=== PATIENT | female | born 1970 | race Caucasian/White ===

== ENCOUNTER 2016-11-17 10:59 | Observation (INO) | payer OTHER ==
[~2016-11-17] VITALS: Ht 177.8 cm; Wt 75.0 kg
[2016-11-17] VITALS (11 sets, daily range): BP systolic 112–145; BP diastolic 58–74; PULSE 72–92; RESP 16–20; TEMP 97.3–100; O2SAT 97–100
[~2016-11-17 10:59] MED LIST: MECL25CH PO; ZOFR4TAB3 PO
--- NOTE | 2016-11-17 11:07 | PD ---
HPI . low HGB Chief Complaint: Abnormal Results Time Seen by Provider: 11:07 Travel History International Travel<30 days: No Contact w/Intl Traveler<30days: No Traveled to known affect area: No History of Present Illness HPI 46 yr old female here with c/o low H/H. Patient has a history of iron deficiency anemia and tells me that she has not been taking iron for quite some time. She says that she is somewhat neglected her health and recently went to see her primary care provider. She received a phone call on Sunday telling her that she had a critically low hemoglobin of 5.7 and that she needed to go to the emergency department for iron transfusion. Patient also reports that she 's had 3 months worth of dysphasia is being followed by her primary care provider. She denies any chest pain, nausea, vomiting, shortness of breath, fatigue or weakness. In regards to her dysphagia, she is able to eat and drink without any major problems. She has no airway difficulties. She denies any melena or hematochezia. Her pcp is Dr. Kellogg [facility] Past Medical History Anemia: Yes (CHRONIC) Asthma: Yes Anxiety: Yes Depression: Yes Diabetes: Yes (PRIOR TO GASTRIC BYPASS) Diminished Hearing: No Headaches: Yes Hypertension: Yes (PRIOR TO GASTRIC BYPASS) Migraines: Yes Pneumonia: Yes ?: Not LMP: 09/2016 : 1 Para: 0 Miscarriage: 1 Past Surgical History Abdominal Surgery: Yes (GASTRIC BYPASS 2000) Appendectomy: Yes Cholecystectomy: Yes Tonsillectomy: Yes Other Surgery: Yes (GASTRIC BYPASS 2000- [facility]) Social History Alcohol Use: No Tobacco Use: Yes (E-CIGARETTE) Substance Use: No Allergies-Medications (Allergen,Severity, Reaction): Coded Allergies: Codeine (Verified Adverse Reaction, Mild, GI UPSET, 11/17/16) Reported Meds & Prescriptions Reported Meds & Active Scripts Active Zofran ODT (Ondansetron HCl) 4 Mg Tab 4 Mg PO Q6HR Meclizine Hcl (Meclizine HCl) 25 Mg Chw 25 Mg PO Q6H PRN Review of Systems General / Constitutional: No: Fever Eyes: No: Visual changes HENT: No: Headaches Cardiovascular: No: Chest Pain or Discomfort Respiratory: No: Shortness of Breath Gastrointestinal: Positive: Constipation, Dysphagia (being followed by PCP ), No: Nausea, Vomiting, Diarrhea, Abdominal Pain, Hematemesis, Hematochezia Genitourinary: No: Dysuria Musculoskeletal: No: Pain Skin: No Rash Neurologic: No: Weakness Psychiatric: No: Depression Endocrine: No: Polydipsia Hematologic/Lymphatic: No: Easy Bruising Physical Exam Narrative GENERAL: AAO x 3, no acute distress, Well-nourished, well-developed patient. SKIN: Warm and dry. No visible rashes or bruising. ++ pallor HEAD: Normocephalic and atraumatic. EYES: No scleral icterus. No injection or drainage. EOM intact, pale conjunctiva ENT: No nasal drainage noted. Mucous membranes pink. Airway patent. pale buccal mucosa NECK: Supple, trachea midline. No JVD. Palpable thyroid gland, slightly enlarged CARDIOVASCULAR: Regular rate and rhythm without murmurs, gallops, or rubs. RESPIRATORY: Breath sounds equal bilaterally. No accessory muscle use. No rhonchi or rales. GASTROINTESTINAL: Abdomen soft, non-tender, nondistended. EXTREMITIES: No cyanosis or edema. BACK: No obvious deformity. . NEURO: CN II-12 intact, grocery store associate strength normal b/l, UE and LE 5/5, no focal deficits PSYCH: AAO x 3, normal affect. Data Data Last Documented VS Vital Signs Date Time Temp Pulse Resp B/P Pulse Ox O2 Delivery O2 Flow Rate FiO2 11/17/16 13:01 75 16 114/58 98 Room Air 11/17/16 11:02 100.0 Orders Complete Blood Count With Diff (11/17/16 11:12) Basic Metabolic Panel (Bmp) (11/17/16 11:12) Serum Total Iron (Fe) (11/17/16 11:12) Type And Screen (11/17/16 11:13) Red Blood Cells (Rbc) (11/17/16 11:13) Blood Product Administration .UPON TRANSFUSION (11/17/16 11:13) Sodium Chlor 0.9% 250 Ml Inj (Ns 250 Ml (11/17/16 11:15) Admit Order (Ed Use Only) (11/17/16 13:28) Labs Laboratory Tests Test 11/17/16 11/17/16 11:30 12:35 White Blood Count 4.3 TH/MM3 Red Blood Count 3.63 MIL/MM3 Hemoglobin 5.7 GM/DL Hematocrit 19.6 % Mean Corpuscular Volume 54.0 FL Mean Corpuscular Hemoglobin 15.6 PG Mean Corpuscular Hemoglobin 28.9 % Concent Red Cell Distribution Width 19.1 % Platelet Count 234 TH/MM3 Mean Platelet Volume 8.3 FL Neutrophils (%) (Auto) 58.1 % Lymphocytes (%) (Auto) 30.4 % Monocytes (%) (Auto) 9.7 % Eosinophils (%) (Auto) 0.4 % Basophils (%) (Auto) 1.4 % Neutrophils # (Auto) 2.5 TH/MM3 Lymphocytes # (Auto) 1.3 TH/MM3 Monocytes # (Auto) 0.4 TH/MM3 Eosinophils # (Auto) 0.0 TH/MM3 Basophils # (Auto) 0.1 TH/MM3 CBC Comment DIFF FINAL Differential Comment Sodium Level 139 MEQ/L Potassium Level 3.7 MEQ/L Chloride Level 106 MEQ/L Carbon Dioxide Level 24.6 MEQ/L Anion Gap 8 MEQ/L Blood Urea Nitrogen 9 MG/DL Creatinine 0.57 MG/DL Estimat Glomerular Filtration 115 ML/MIN Rate Random Glucose 85 MG/DL Calcium Level 8.1 MG/DL Iron Level 7 MCG/DL Blood Type O POSITIVE O POSITIVE Antibody Screen NEGATIVE Crossmatch Leukocyte-Reduced Red Blood Cells Blood Bank Comment MDM Medical Decision Making Medical Screen Exam Complete: Yes Emergency Medical Condition: Yes Medical Record Reviewed: Yes Differential Diagnosis Iron deficiency anemia, less likely GI bleed, pernicious anemia Narrative Course 46-year-old female here with low hemoglobin. She does have history of iron deficiency anemia. IV access was obtained, labs have been ordered. Patient is asymptomatic, but will require a blood transfusion. Case was discussed with my supervising physician Dr. Cali Adam. We will go ahead and transfuse this patient and admit her as she will likely require an iron infusion as well. In regards to her dysphagia, she is currently having this followed by her primary care provider. She does not have any airway compromise. I reiterated to her that she should have a thyroid ultrasound as an outpatient. Laboratory Tests Test 11/17/16 11/17/16 11:30 12:35 White Blood Count 4.3 TH/MM3 Red Blood Count 3.63 MIL/MM3 Hemoglobin 5.7 GM/DL Hematocrit 19.6 % Mean Corpuscular Volume 54.0 FL Mean Corpuscular Hemoglobin 15.6 PG Mean Corpuscular Hemoglobin 28.9 % Concent Red Cell Distribution Width 19.1 % Platelet Count 234 TH/MM3 Mean Platelet Volume 8.3 FL Neutrophils (%) (Auto) 58.1 % Lymphocytes (%) (Auto) 30.4 % Monocytes (%) (Auto) 9.7 % Eosinophils (%) (Auto) 0.4 % Basophils (%) (Auto) 1.4 % Neutrophils # (Auto) 2.5 TH/MM3 Lymphocytes # (Auto) 1.3 TH/MM3 Monocytes # (Auto) 0.4 TH/MM3 Eosinophils # (Auto) 0.0 TH/MM3 Basophils # (Auto) 0.1 TH/MM3 CBC Comment DIFF FINAL Differential Comment Sodium Level 139 MEQ/L Potassium Level 3.7 MEQ/L Chloride Level 106 MEQ/L Carbon Dioxide Level 24.6 MEQ/L Anion Gap 8 MEQ/L Blood Urea Nitrogen 9 MG/DL Creatinine 0.57 MG/DL Estimat Glomerular Filtration 115 ML/MIN Rate Random Glucose 85 MG/DL Calcium Level 8.1 MG/DL Iron Level 7 MCG/DL Blood Type O POSITIVE O POSITIVE Antibody Screen NEGATIVE Crossmatch Leukocyte-Reduced Red Blood Cells Blood Bank Comment We ordered 2 units PRBC. Discussed admission with Dr. Mortensen, who has accepted patient for admission. He will resume care of this patient and determine her disposition. All results have been discussed with the patient. She has agreed to admission and with our recommendations. Patient thanked me for her care. Diagnosis Primary Impression: Iron deficiency anemia Qualified Code: D50.9 - Iron deficiency anemia, unspecified iron deficiency anemia type Admitting Information Admitting Physician Requests: Admit Condition: Stable Bianca Evans Nov 17, 2016 11:07
[2016-11-17 11:13] LABS: MEAN CORPUSCULAR HGB CONC 28.9 % (32.0-36.0)
[2016-11-17] MEDS ORDERED: SODIUM CHLOR 0.9% 250 ML INJ 250 ML IV ONE (11:15)
[2016-11-17 11:57] LABS: AUTOMATED NEUTROPHIL # 2.5 TH/MM3 (1.8-7.7); BASOPHIL # 0.1 TH/MM3 (0-0.2); BASOPHIL % 1.4 % (0.0-2.0); EOSINOPHIL % 0.4 % (0.0-4.0); LYMPH % 30.4 % (9.0-44.0); LYMPHOCYTE # 1.3 TH/MM3 (1.0-4.8); MEAN CORPUSCULAR HEMOGLOBIN 15.6 PG (27.0-34.0); MONO % 9.7 % (0.0-8.0); NEUT % 58.1 % (16.0-70.0); PLATELET COUNT 234 TH/MM3 (150-450); RED BLOOD COUNT 3.63 MIL/MM3 (4.00-5.30); RED CELL DISTRIBUTION WIDTH 19.1 % (11.6-17.2); WHITE BLOOD COUNT 4.3 TH/MM3 (4.0-11.0)
[2016-11-17 12:08] LABS: HEMATOCRIT 19.6 % (35.0-46.0); HEMO FLAGS DIFF FINAL
[2016-11-17 12:13] LABS: BICARBONATE 24.6 MEQ/L (21.0-32.0); POTASSIUM 3.7 MEQ/L (3.5-5.1)
[2016-11-17] MEDS ORDERED: ASPI1POW9 PO (14:36)
--- NOTE | 2016-11-17 16:42 | HHI.HP ---
HPI Service [facility] Primary Care Physician Jan Kellogg, DO Admission Diagnosis iron def anemia Chief Complaint: Anemia Travel History International Travel<30 Days: No Contact w/Intl Traveler <30 Da: No Traveled to Known Affected Are: No History of Present Illness Ms Elizondo is a 46 y/o female with hx of iron deficiency anemia, anxiety and depression with hx of gastric bypass surgery. She tells me that she has not been taking iron supplements for quite some time and has been seen by her PCP for a few years. She reports that for the last few weeks she has had increased fatigue, generalized weakness, headaches and some SOB with exertion. She also noted that she has been taking Goody Powders 2-3 times per day for the last year for chronic headaches. Pt also reports that she has had some swallowing issues with a globus sensation in her throat to all consistencies. She has also been having some odynophagia when eating food. She says that she is somewhat neglected her health had been seen previously by Dr. Khan for iron infusions regularly but she had not gotten any iron infusions in the last two years. She resumed her health insurance in September and went to see her PCP, Dr. Kellogg this week and then went for blood work and was called for a critically low hemoglobin of 5.7 and that she needed to go to the emergency department for blood transfusion. She denies any chest pain, nausea, vomiting, shortness of breath, fatigue or weakness. She denies any melena or hematochezia. Review of Systems Constitutional: DENIES: Fever, Chills Respiratory: DENIES: Cough Cardiovascular: COMPLAINS OF: Dyspnea on Exertion, DENIES: Chest pain Gastrointestinal: COMPLAINS OF: GERD, Difficulty Swallowing, DENIES: Abdominal pain, Black stools, Bloody stools, Constipation, Diarrhea, Nausea, Vomiting Integumentary: DENIES: Rash Neurologic: DENIES: Headache Psychiatric: DENIES: Confusion Past Family Social History Past Medical History Iron deficiency anemia Asthma Anxiety/Depression Hx of vertigo Past Surgical History Gastric bypass in 2000 Appendectomy Cholecystectomy Tonsillectomy Reported Medications Goodys Extra Strength Powder (Zgbuqtr-Anbpuqscemmid-Okectcwg Powder) 500-325-65 Mg Powderpack 1 Pkt PO TID PRN Allergies: Coded Allergies: Codeine (Verified Adverse Reaction, Mild, GI UPSET, 11/17/16) Family History Noncontributory Social History Hx of tobacco use, smoked 1ppd x 15 years, quit 2 years ago. Smokes electronic cigarettes Denies any alcohol or illicit drug use Physical Exam Vital Signs Vital Signs Date Time Temp Pulse Resp B/P Pulse Ox O2 Delivery O2 Flow Rate FiO2 11/17/16 16:19 74 16 113/74 99 11/17/16 15:03 98.6 75 16 112/60 100 Room Air 11/17/16 14:48 98.5 72 16 114/63 99 Room Air 11/17/16 14:45 98.5 72 16 114/63 99 Room Air 11/17/16 14:09 79 20 125/63 99 Room Air 11/17/16 13:01 75 16 114/58 98 Room Air 11/17/16 11:26 92 16 122/61 Room Air 11/17/16 11:02 100.0 92 20 145/67 97 Room Air Physical Exam GENERAL: This is a well-nourished, well-developed patient, in no apparent distress. SKIN: No rashes, ecchymoses or lesions. Cool and dry. HEAD: Atraumatic. Normocephalic. No temporal or scalp tenderness. EYES: Pupils equal round and reactive. Extraocular motions intact. No scleral icterus. No injection or drainage. ENT: Nose without bleeding, purulent drainage or septal hematoma. Throat without erythema, tonsillar hypertrophy or exudate. Uvula midline. Airway patent. NECK: Trachea midline. No JVD or lymphadenopathy. Supple, nontender, no meningeal signs. CARDIOVASCULAR: Regular rate and rhythm without murmurs, gallops, or rubs. RESPIRATORY: Clear to auscultation. Breath sounds equal bilaterally. No wheezes , rales, or rhonchi. GASTROINTESTINAL: Abdomen soft, non-tender, nondistended. No hepato-splenomegaly , or palpable masses. No guarding. MUSCULOSKELETAL: Extremities without clubbing, cyanosis, or edema. No joint tenderness, effusion, or edema noted. No calf tenderness. Negative Homans sign bilaterally. NEUROLOGICAL: Awake and alert. Cranial nerves II through XII intact. Motor and sensory grossly within normal limits. Five out of 5 muscle strength in all muscle groups. Normal speech. Laboratory Laboratory Tests Test 11/17/16 11/17/16 11:30 12:35 White Blood Count 4.3 Red Blood Count 3.63 Hemoglobin 5.7 Hematocrit 19.6 Mean Corpuscular Volume 54.0 Mean Corpuscular Hemoglobin 15.6 Mean Corpuscular Hemoglobin 28.9 Concent Red Cell Distribution Width 19.1 Platelet Count 234 Mean Platelet Volume 8.3 Neutrophils (%) (Auto) 58.1 Lymphocytes (%) (Auto) 30.4 Monocytes (%) (Auto) 9.7 Eosinophils (%) (Auto) 0.4 Basophils (%) (Auto) 1.4 Neutrophils # (Auto) 2.5 Lymphocytes # (Auto) 1.3 Monocytes # (Auto) 0.4 Eosinophils # (Auto) 0.0 Basophils # (Auto) 0.1 CBC Comment DIFF FINAL Differential Comment Sodium Level 139 Potassium Level 3.7 Chloride Level 106 Carbon Dioxide Level 24.6 Anion Gap 8 Blood Urea Nitrogen 9 Creatinine 0.57 Estimat Glomerular Filtration 115 Rate Random Glucose 85 Calcium Level 8.1 Iron Level 7 Blood Type O POSITIVE O POSITIVE Antibody Screen NEGATIVE Crossmatch Leukocyte-Reduced Red Blood Cells Blood Bank Comment Result Diagram: 11/17/16 1130 11/17/16 1130 Assessment and Plan Problem List: (1) Symptomatic anemia Status: Acute Plan: - Pt with symptomatic anemia and has been had dyspnea on exertion, increased fatigue and hx of gastric bypass surgery with previous hx of iron deficiency anemia - She has been having issues with dysphagia over the last few months and has been using Goody powder consistently for at least the last year. - She hasn't received iron infusions for the last 2 years and has not been on any supplements - Pt is being transfused with 2 units of PRBCs currently - Start Protonix 40mg IV BID - Iron infusion with IV Venofer iron sucrose - Consult GI for the dysphagia and iron deficiency anemia - Supportive care - Repeat labs in AM (2) Dysphagia Status: Chronic (3) NSAID long-term use Status: Chronic (4) H/O gastric bypass Status: Chronic Assessment and Plan Patient examined. Assessment and plan formulated with Susie Dumont PA-C. I agree with the above. symptomatic blood loss anemia. dysphagia/odynophagia. takes alot of bc powder for h/a craves alot of ice iron def anemia related to gi losses hx gastric surgery and poor iron absorption. blood transfusion given by ED> iv iron ordered d/c in AM. PPI. I spoke to Dr Echeverria who will have pt called [facility] for appt this coming week. She will likely need EGD to eval the UGI tract. She could potentially have a dragan ketty syndrome Susie Dumont Nov 17, 2016 16:41 Jovanny Mortensen MD Nov 17, 2016 21:16
[2016-11-17] MEDS ORDERED: IRON SUCROSE INJ 200 MG in SODIUM CHLORIDE 0.9% INJ 100 ML IV SCH (17:00)
[2016-11-17] MEDS: PANTOPRAZOLE SODIUM 40 MG VIAL IV PUSH SCH (19:16)
[2016-11-18] VITALS (9 sets, daily range): BP systolic 99–116; BP diastolic 53–69; PULSE 68–78; RESP 16–20; TEMP 97.2–99.2; O2SAT 97–99
[2016-11-18 04:13] LABS: REVIEW FLAG FINAL
[2016-11-18 04:18] LABS: HEMATOCRIT 22.7 % (35.0-46.0)
[2016-11-18] MEDS: PANTOPRAZOLE SODIUM 40 MG VIAL IV PUSH SCH ×2 (05:50→18:23)
[2016-11-18] MEDS ORDERED: IRON SUCROSE 100 MG/5 ML VIAL IV PUSH ONE (09:00)
[2016-11-18] MEDS ORDERED: PNEUMOCOCCAL POLYVALENT INJ 25 MCG/0.5 ML SYR IM ONE (10:00)
[2016-11-18] MEDS ORDERED: INFLUENZA VIRUS VACCINE (QUADRIVALENT) 0.5 ML SYR IM ONE (10:00)
[2016-11-18 11:29] LABS: REVIEW FLAG FINAL
[2016-11-18] MEDS ORDERED: PROT40TA PO (11:50)
[2016-11-18] MEDS ORDERED: ACETAMINOPHEN 500 MG CPLT PO ONE (12:00)
--- NOTE | 2016-11-18 13:56 | HHI.PR ---
Subjective Remarks says she stilll feels very weak and lightheaded just walking to bathroom. She feels like falling asleep and would not be able to drive no bleeding noted. no abdomen pain. able to swallow and hold down foods/liquids. Objective Vitals nad heart reg lung cta abd s/nt ext no edema Vital Signs Date Time Temp Pulse Resp B/P Pulse Ox O2 Delivery O2 Flow Rate FiO2 11/18/16 12:43 98.6 74 16 111/69 97 11/18/16 08:25 98.7 72 16 111/64 97 11/18/16 03:55 99.2 77 20 103/54 97 11/18/16 00:09 98.9 75 19 114/55 98 11/17/16 20:22 97.3 74 19 119/68 98 11/17/16 17:20 98.9 76 17 121/66 100 11/17/16 16:58 99.1 77 20 122/67 100 11/17/16 16:19 74 16 113/74 99 11/17/16 15:03 98.6 75 16 112/60 100 Room Air 11/17/16 14:48 98.5 72 16 114/63 99 Room Air 11/17/16 14:45 98.5 72 16 114/63 99 Room Air 11/17/16 14:09 79 20 125/63 99 Room Air Result Diagram: 11/18/16 1045 11/17/16 1130 A/P Problem List: (1) Symptomatic anemia Status: Acute Plan: - Pt with symptomatic anemia and has had dyspnea on exertion, increased fatigue and hx of gastric bypass surgery with previous hx of iron deficiency anemia - She has been having issues with dysphagia over the last few months and has been using Goody powder consistently for at least the last year. - She hasn't received iron infusions for the last 2 years and has not been on any supplements -The patient has symptomatic iron deficiency anemia. with her dysphagia she may have a dragan ketty syndrome with esophageal ring or webbing.....versus esophagitis/ulceration from taking 3x daily BC powders for over a year. Today after 2 units blood and 2 of venofer iron she still feels fatigue and lightheaded. She will need an EGD to evaluate for the above diagnosis and less likely but to exclude malignancy. She will get another unit of blood prior to her dc later today. she will stop using BC powder and use bid protonix. she will modify her diet for now I spoke with GI Dr Echeverria who would like to see her in the office instead of the hospital. She would have to wait several days here before endoscopy could be performed. He will have his office call her on Sunday for an appt. The pt is instructed to contact her pcp office on Sunday as I would recommend she get more iron infusions..[facility]. we will try to call pcp office also on Sunday. (2) Dysphagia Status: Chronic (3) NSAID long-term use Status: Chronic (4) H/O gastric bypass Status: Chronic Jovanny Mortensen MD Nov 18, 2016 13:56
--- NOTE | 2016-11-18 18:10 | HHI.DCPOC ---
Discharge Care Plan Diagnosis: (1) Symptomatic anemia (2) Iron deficiency anemia (3) Dysphagia (4) NSAID long-term use Goals to Promote Your Health * To prevent worsening of your condition and complications * To maintain your health at the optimal level Directions to Meet Your Goals Take your medications as prescribed Follow your dietary instruction Follow activity as directed Keep your appointments as scheduled Take your immunizations and boosters as scheduled If your symptoms worsen call your PCP, if no PCP go to Urgent Care Center or Emergency Room Smoking is Dangerous to Your Health. Avoid second hand smoke Call the 24-hour hour crisis hotline for domestic abuse at Jovanny Mortensen MD Nov 18, 2016 18:10
== END 2016-11-18 19:56 | disposition home or self-care (01) ==
LOC: NEPC 10:59 → NEDA 13:29 → NEPGCP 16:24
PROVIDERS: ADMIT Hospitalist; ATTEND Hospitalist
DX: D50.9 Iron deficiency anemia, unspecified (principal); Z98.84 Bariatric surgery status; R13.10 Dysphagia, unspecified; Z23 Encounter for immunization; F41.9 Anxiety disorder, unspecified; F32.9 Major depressive disorder, single episode, unspecified; F17.210 Nicotine dependence, cigarettes, uncomplicated
CPT/HCPCS: 36430; 80048; 83540; 85014; 85018; 85025; 86850; 86900; 86901; 86920; 90471; 90732; 99285; C9113; G0378; J1756; J7050; P9016